=== PATIENT | male | born 2000 | race Caucasian/White ===

== ENCOUNTER 2020-01-14 12:21 | Outpatient (CLI) | payer OTHER, SELFPAY ==
[2020-01-14 13:41] LABS: SARS-CoV-2 Ag Positive (Negative)
== END 2020-01-14 12:22 | disposition home or self-care (01) ==
LOC: CHSLAB 12:26
PROVIDERS: PCP Internal Medicine; Visit Provider Internal Medicine
DX: U07.1 COVID-19 (principal)
CPT/HCPCS: 87426

== ENCOUNTER 2024-10-04 18:36 | Emergency (ER) | payer OTHER, SELFPAY ==
[2024-10-04 18:38] VITALS: BP 160/88; PULSE 93; RESP 16; TEMP 37.2; O2SAT 97
--- NOTE | 2024-10-04 18:41 | ED_ITS ---
HPI - Skin/Abscess/Foreign Bdy General Chief complaint: Skin/Abscess/Foreign Body Stated complaint: Rash Time Seen by Provider: 10/04/24 18:40 Source: patient and family Mode of arrival: ambulatory Limitations: no limitations History of Present Illness HPI narrative: this is a 23-year-old male who presents with his father after he was doing some weed cleaning snow developed a rash started on his legs now on his abdomen and checked with no fever chills no nausea vomiting no shortness of breath no audible wheezing no stridor. The patient did take some Zyrtec and Benadryl prior to arrival to the emergency department. complaint: rash Onset (ago): hour(s) Location: generalized Pain Consistency: constant Related Data Allergies Allergy/AdvReac Type Severity Reaction Status Date / Time Penicillins Allergy Mild Rash Verified 10/04/24 18:38 Review of Systems Review of Systems: All systems reviewed & are unremarkable except as noted in HPI and below Exam Const: General: healthy appearing and no acute distress Nutritional Appearance: well nourished Orientation/consciousness: patient oriented x3 Limitations: no limitations HENMT: Head: normal to inspection Face/Nose/Sinus: Normal external nose present Face and sinus: normal facial exam Eyes: Conjunctivae: conjunctivae normal Pupils: Equal, round and reactive pupils present Neck: Neck: no lymphadenopathy and no meningeal signs Chest: Chest palpation & inspection: normal inspection of the chest Resp: Effort & Inspection: normal respiratory effort Auscultation: clear to auscultation bilaterally Cardio: Rate: regular rate Rhythm: regular rhythm GI: GI Palp: Yes Soft to palpation Auscultation: normal bowel sounds : General: Yes bladder normal to palpation Male General Exam: Yes normal external exam Urinary Catheter: Urinary Catheter: patent and draining Back/Spine/Pelvis: Back: no CVA tenderness Skin: General skin exam: normal color Wounds: wounds noted Other: Urticarial rash on arms legs and abdomen Neuro: General: patient oriented x3 and moves all extremities Extrem: General: normal to inspection and no clubbing, cyanosis or edema Psych: Mental Status: mental status grossly normal Course Course Emergency Course: patient took Benadryl and Zyrtec prior to her arrival and administered 80mg IM Depo-Medrol currently the patient has no fever chills no audible wheezing no shortness of breath. Critical Care Time Critical Care Time Critical Care Time: No Discharge Plan Discharge Clinical Impression: Contact dermatitis Qualifiers: Contact dermatitis type: allergic Contact dermatitis trigger: non-food plants Qualified Code(s): L23.7 - Allergic contact dermatitis due to plants, except food Patient Disposition: Home Condition: Stable Instructions: Antibiotic Form, Contact Dermatitis (ED), Urticaria (ED) Additional Instructions: Advised patient to take medication as prescribed and follow with primary if symptoms persist or worsen. Take the Zyrtec daily x1 week Patient Language: Guamanian Prescriptions: New prednisone 20 mg tablet 20 mg PO DAILY 5 Days Qty: 5 0RF famotidine [Pepcid] 20 mg tablet 20 mg PO BID Qty: 14 0RF Follow-up/Referrals: UNKNOWN,DOCTOR [Primary Care Provider]
[2024-10-04] MEDS: methylPREDNISolone ACETATE 40 MG/ML VIAL 80 MG IM (18:47)
== END 2024-10-04 19:11 | disposition home or self-care (01) ==
LOC: CHSED 18:49
PROVIDERS: Emergency Provider Emergency Medicine; PCP Internal Medicine
DX: L23.7 Allergic contact dermatitis due to plants, except food (principal)
CPT/HCPCS: 96372; 99283; J1010